=== PATIENT | female | born 1965 | race Caucasian/White ===

== ENCOUNTER 2018-08-28 06:32 | Day surgery (SDC) | payer MEDICARE, MEDICAID ==
[2018-08-28] MEDS ORDERED: Sodium Chloride 0.9% 1,000 ML IV SCH (07:00)
[2018-08-28] MEDS ORDERED: Propofol 200 MG/20 ML SDV ONE (07:23)
[2018-08-28] MEDS ORDERED: Midazolam 1 MG/ML 2 ML SDV ONE (07:23)
[2018-08-28] MEDS ORDERED: fentaNYL 100 MCG/2 ML SDV ONE (07:23)
--- NOTE | 2018-08-28 14:07 | OR ---
DATE OF PROCEDURE: 08/28/2018 SURGEON: Robbie Sepulveda MD PROCEDURE: Colonoscopy. FINDINGS: Descending colon polyp, approximately 5 mm, completely removed using cold biopsy forceps. COMPLICATIONS: None. 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 ANESTHESIA: MAC. RISKS: Risks, benefits, alternatives, and limitations including, but not limited to infection, bleeding, and perforation were explained to the patient, who wished to proceed. PROCEDURE IN DETAIL: The patient was placed in left lateral decubitus position. Digital rectal exam was performed without abnormality. The scope was introduced and advanced atraumatically to the ileocecal valve. The scope was passed through the ascending, transverse and descending colon, and retroflexed. The aforementioned polyp was identified and completely removed. No old or new blood. No masses. No diverticulosis. The patient tolerated the procedure well. Robbie Sepulveda MD /[id number]
== END 2018-08-28 09:00 | disposition home or self-care (01) ==
LOC: JP.SDS 06:32
PROVIDERS: ATTEND Surgery
DX: Z12.11 Encounter for screening for malignant neoplasm of colon (principal); K63.5 Polyp of colon; F17.200 Nicotine dependence, unspecified, uncomplicated; Z88.0 Allergy status to penicillin
CPT/HCPCS: 45380; J2250; J2704; J3010; J7030; 88305

== ENCOUNTER 2019-07-05 12:57 | Emergency (ER) | payer MEDICARE, MEDICAID ==
--- NOTE | 2019-07-05 13:22 | EDM.PDOC ---
ED HPI GENERAL MEDICAL PROBLEM - General Chief Complaint: Upper Extremity Injury/Pain Stated Complaint: FELL HURT LEFT HAND Time Seen by Provider: 07/05/19 13:22 Source of Information: Reports: Patient History Limitations: Reports: No Limitations - History of Present Illness INITIAL COMMENTS - FREE TEXT/NARRATIVE: pt slipped on the ice and landed on her hand. She has pain in the left wrist area. Onset: Today, Sudden Duration: Hour(s): Location: Reports: Upper Extremity, Left Associated Symptoms: Reports: No Other Symptoms left wrist Pain Score (Numeric/FACES): 10 - Related Data Allergies Allergy/AdvReac Type Severity Reaction Status Date / Time Penicillins Allergy Rash Verified 07/05/19 13:11 Home Meds: Home Meds Efavirenz/Emtricitabine/Tenofo [Atripla] 1 tab PO DAILY 10/31/13 [History] Sertraline [Zoloft] 100 mg PO DAILY 10/31/13 [History] Ergocalciferol (Vitamin D2) [Vitamin D2] 400 unit PO DAILY 05/20/18 [History] buPROPion HCl [Wellbutrin Xl] 300 mg PO DAILY 05/20/18 [History] Past Medical History HEENT History: Reports: Impaired Vision Gastrointestinal History: Reports: None Genitourinary History: Reports: None 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: Musculoskeletal History: Reports: Fracture Psychiatric History: Reports: Anxiety, Depression, Suicide Attempt Immunologic History: Reports: HIV - Infectious Disease History Infectious Disease History: Reports: Chicken Pox, HIV-Human Immunodeficiency Virus, Measles - Past Surgical History HEENT Surgical History: Reports: Oral Surgery GI Surgical History: Reports: Appendectomy Female Surgical History: Reports: Section, LEEP Musculoskeletal Surgical History: Reports: Other (See Below) Other Musculoskeletal Surgeries/Procedures:: surgery to repair right femur fracture Social & Family History - Family History Family Medical History: Noncontributory - Tobacco Use Smoking Status *Q: Current Every Day Smoker Years of Tobacco use: 30 Packs/Tins Daily: 1 - Caffeine Use Caffeine Use: Reports: Coffee - Recreational Drug Use Recreational Drug Use: No Review of Systems - Review of Systems Review Of Systems: See Below Constitutional: Reports: No Symptoms Eyes: Reports: No Symptoms Ears: Reports: No Symptoms Nose: Reports: No Symptoms Mouth/Throat: Reports: No Symptoms Respiratory: Reports: No Symptoms Cardiovascular: Reports: No Symptoms GI/Abdominal: Reports: No Symptoms Genitourinary: Reports: No Symptoms Musculoskeletal: Reports: Other (pain in the left wrist area. ) ED EXAM, GENERAL - Physical Exam Exam: See Below Free Text/Narrative:: pt fell on the ice and has a painful left wrist. Exam Limited By: No Limitations General Appearance: Alert, Anxious, Moderate Distress Extremities: Other (left wrist is uncomfortable and has mild swelling. ) Neurological: Alert, Oriented, Normal Cognition Course - Vital Signs Last Recorded V/S: Last Vital Signs Temp 36.6 C 07/05/19 13:12 Pulse 59 L 07/05/19 13:12 Resp 12 07/05/19 13:12 BP 101/79 07/05/19 13:12 Pulse Ox 96 07/05/19 13:12 - Orders/Labs/Meds Orders: Active Orders 24 hr Category Date Time Status Wrist Comp Min 3V Lt [CR] Stat Exams 07/05/19 13:21 Taken Acetaminophen/HYDROcodone [[place] 325-5 MG] Med 07/05/19 15:11 Once 1 tab PO ONETIME ONE - Re-Assessments/Exams Free Text/Narrative Re-Assessment/Exam: 07/05/19 15:14 xray reveals a fracture of the ulna styloid, she also has a minimally displaced fracture of the distal radius. Departure - Departure Time of Disposition: 15:08 Disposition: Home, Self-Care 01 Condition: Fair Clinical Impression: Fracture of ulnar styloid, Fracture of distal end of radius - Discharge Information Referrals: PCP,None [Primary Care Provider] - Forms: ED Department Discharge Care Plan Goals: plaster splint applied, sling, referal to Dr Luna, cool pack to the wrist area. elevate the arm.norco 5/325 q6h prn for pain. Sepsis Event Note - Evaluation Sepsis Screening Result: No Definite Risk - Focused Exam Vital Signs: Vital Signs Temp Pulse Resp BP Pulse Ox 07/05/19 13:12 36.6 C 59 L 12 101/79 96 Date Exam was Performed: 07/05/19 Time Exam was Performed: 15:12 - My Orders Last 24 Hours: My Active Orders 07/05/19 13:21 Wrist Comp Min 3V Lt [CR] Stat 07/05/19 15:11 Acetaminophen/HYDROcodone [[place] 325-5 MG] 1 tab PO ONETIME ONE - Assessment/Plan Last 24 Hours: My Active Orders 07/05/19 13:21 Wrist Comp Min 3V Lt [CR] Stat 07/05/19 15:11 Acetaminophen/HYDROcodone [[place] 325-5 MG] 1 tab PO ONETIME ONE
[2019-07-05] MEDS ORDERED: Acetaminophen/HYDROcodone 325-5 MG Tab PO ONE (15:11)
--- NOTE | 2019-07-06 11:59 | CR ---
Wrist Comp Min 3V Lt CLINICAL HISTORY: Fall FINDINGS: There is a comminuted impacted fracture of the distal radius and a fracture through the base of the ulnar styloid. There is slight displacement of both did there is some osteoarthritis. There is slight dorsal angulation of the distal radius Impression: Comminuted slightly impacted fracture distal radius and fracture through the base of the ulnar styloid
== END 2019-07-05 15:26 | disposition home or self-care (01) ==
LOC: JP.ED 12:57
DX: S52.612A Displaced fracture of left ulna styloid process, initial encounter for closed fracture (principal); S52.502A Unspecified fracture of the lower end of left radius, initial encounter for closed fracture; F17.210 Nicotine dependence, cigarettes, uncomplicated; Z88.0 Allergy status to penicillin; W01.0XXA Fall on same level from slipping, tripping and stumbling without subsequent striking against object, initial encounter
CPT/HCPCS: 29125; 73110; 99283; A9270

== ENCOUNTER 2019-07-08 07:00 | Day surgery (SDC) | payer MEDICARE, MEDICAID ==
[2019-07-08] MEDS ORDERED: Bupivacaine 0.5% 30 ML SDV ONE (07:28)
[2019-07-08] MEDS ORDERED: Nozin Nasal Sanitizer NASBOTH ONE (07:30)
[2019-07-08] MEDS ORDERED: ceFAZolin 2 GM in Premix Bag 1 BAG IV ONE (07:30)
[2019-07-08] MEDS ORDERED: Lactated Ringers 1,000 ML IV SCH (07:30)
[2019-07-08] MEDS ORDERED: Neostigmine Methylsulfate 1 MG/ML 5 ML Syringe ONE (07:32)
[2019-07-08] MEDS ORDERED: Propofol 200 MG/20 ML SDV ONE (07:32)
[2019-07-08] MEDS ORDERED: Ondansetron 4 MG/2 ML SDV ONE (07:32)
[2019-07-08] MEDS ORDERED: Rocuronium 50 MG/5 ML Vial ONE (07:32)
[2019-07-08] MEDS ORDERED: Dexamethasone 4 MG/ML SDV ONE (07:32)
[2019-07-08] MEDS ORDERED: Glycopyrrolate 0.2 MG/ML 5 ML MDV ONE (07:32)
[2019-07-08] MEDS ORDERED: Succinylcholine 200 MG/10 ML MDV ONE (07:32)
[2019-07-08] MEDS ORDERED: fentaNYL 250 MCG/5 ML SDV ONE ×2 (07:33→09:00)
[2019-07-08] MEDS ORDERED: Ketorolac 60 MG/2 ML SDV ONE (09:28)
[2019-07-08] MEDS ORDERED: Acetaminophen/oxyCODONE 325-5 MG Tab PO PRN (10:45)
--- NOTE | 2019-07-16 08:37 | OR ---
DATE OF PROCEDURE: 07/08/2019 SURGEON: Nicholas Luna MD PREOPERATIVE DIAGNOSIS: Angulated left distal radius fracture. POSTOPERATIVE DIAGNOSIS: Angulated left distal radius fracture, extra-articular. PROCEDURE: Open reduction and internal fixation, left distal radius. ANESTHESIA: General. INDICATIONS: Natalia is a very pleasant 53-year-old female, who sustained a fall onto her outstretched left hand, resulting in a fracture of the distal radius, as well as the ulnar styloid. The fracture shows dorsal angulation. I discussed the risks, benefits, potential complications, and pros and cons of closed treatment versus open reduction and internal fixation. She now presents for fixation with a volar plate. She is in agreement with the plan. The risks and benefits were discussed. PROCEDURE IN DETAIL: After adequate anesthesia was obtained, the patient was placed supine with a tourniquet about the left upper arm. The arm was prepped and draped in sterile fashion and the tourniquet inflated to 250 mmHg pressure. A longitudinal incision was made over the volar aspect of the wrist just radial to the palmaris. This was carried down through the subcutaneous tissues, and the flexor retinaculum was then divided. Blunt dissection was then carried down to the quadratus. The median nerve was protected throughout the case. A self-retaining retractor was placed. The quadratus was divided and elevated, revealing the fracture. The fracture was then reduced under direct visualization and reduction confirmed using C-arm fluoroscopy. A volar plate was then positioned and then held temporarily with K-wires and the position confirmed again with fluoroscopy. The plate was then secured using 3.5 mm cancellous screws proximally and locking screws distally. Final position of screws was evaluated and confirmed with fluoroscopy. The wound was then irrigated. Skin was closed with 2-0 Vicryl and a running 3-0 Monocryl. Steri-Strips were applied. Skin edges were infiltrated with 0.25% Marcaine, and a deeper infiltration around the plate and fracture was also done. A dressing was then applied with a volar splint. The patient tolerated the procedure very well, there were no complications, and was taken from the operating room in stable condition. Nicholas Luna MD /[id number]
== END 2019-07-08 11:20 | disposition home or self-care (01) ==
LOC: JP.SDS 07:00
PROVIDERS: ATTEND Specialist
DX: S52.552A Other extraarticular fracture of lower end of left radius, initial encounter for closed fracture (principal); S52.612A Displaced fracture of left ulna styloid process, initial encounter for closed fracture; W19.XXXA Unspecified fall, initial encounter; Z88.0 Allergy status to penicillin
CPT/HCPCS: 25607; 76000; A9270; C1713; J0330; J0690; J1100; J1885; J2405; J2704; J2710; J3010; J3490; J7120

== ENCOUNTER 2019-12-07 07:30 | Day surgery (SDC) | payer MEDICARE, MEDICAID ==
[2019-12-07] MEDS ORDERED: Lactated Ringers 1,000 ML IV SCH (08:00)
[2019-12-07] MEDS ORDERED: Nozin Nasal Sanitizer NASBOTH ONE (08:00)
[2019-12-07] MEDS ORDERED: Bupivacaine 0.5% 30 ML SDV ONE (08:09)
[2019-12-07] MEDS ORDERED: ceFAZolin 2 GM in Premix Bag 1 BAG IV ONE (08:45)
[2019-12-07] MEDS ORDERED: Propofol 200 MG/20 ML SDV ONE (09:14)
[2019-12-07] MEDS ORDERED: Rocuronium 50 MG/5 ML Vial ONE (09:14)
[2019-12-07] MEDS ORDERED: Dexamethasone 4 MG/ML SDV ONE (09:14)
[2019-12-07] MEDS ORDERED: Glycopyrrolate 0.2 MG/ML 5 ML MDV ONE (09:14)
[2019-12-07] MEDS ORDERED: Neostigmine Methylsulfate 1 MG/ML 5 ML Syringe ONE (09:14)
[2019-12-07] MEDS ORDERED: Ondansetron 4 MG/2 ML SDV ONE (09:14)
[2019-12-07] MEDS ORDERED: fentaNYL 250 MCG/5 ML SDV ONE (09:15)
--- NOTE | 2019-12-11 17:37 | OR ---
DATE OF PROCEDURE: 12/07/2019 SURGEON: Nicholas Luna MD PREOPERATIVE DIAGNOSIS: Calcific tendinitis, left Achilles, with a bone spur, calcaneus. POSTOPERATIVE DIAGNOSIS: Heterotopic bone, left Achilles, with a bone spur, calcaneus. PROCEDURE: Excision of heterotopic bone, left Achilles, and debridement of bone spur and repair of the Achilles tendon. ANESTHESIA: General. INDICATIONS: Natalia is a 54-year-old female who has been having increasing pain in her left heel for the past year. Difficulty with shoe wear. She has failed conservative treatment with modification of shoe wear. X-ray reveals a large fragment of heterotopic bone consistent with calcific tendinitis within the Achilles tendon just above its insertion. She also has a large traction spur on the posterior calcaneus at the Achilles insertion. Now presents for debridement of both. Risks, benefits, and potential complications were discussed. DESCRIPTION OF PROCEDURE: After adequate anesthesia was obtained, the patient was placed in a prone position, and all bony prominences were well padded. A tourniquet was placed about the upper thigh. Leg was prepped and draped in a sterile fashion. Leg was exsanguinated and tourniquet inflated to 300 mmHg pressure. Incision was made over the insertion of the Achilles and distal Achilles in a curvilinear fashion. Full-thickness skin flaps were elevated. A longitudinal incision was made in the midsubstance of the Achilles in line with the fibers and carried down to the heterotopic bone within the tendon. This was actually a solid piece of heterotopic bone and not consistent with the chalky calcific tendinitis. This was sharply excised with a 15 blade. A portion of the insertion of the Achilles was then peeled off the calcaneus and a rongeur was used to debride the osteophyte. Edges of this were smoothed over. This provided very good debulking of the posterior heel. Two Mitek Super anchors were then placed into the calcaneus. Sutures from these were brought through the tendon and used to secure the tendon back onto the calcaneus and repair the tendon in a [id number] fashion. The ends of the sutures were then brought back through the tendon and tied off to the side and in the soft tissue to avoid the large knot being palpable under the skin posteriorly. A solid repair of the tendon was achieved. Wound was irrigated. The skin was then closed with 2-0 Vicryl and a running 3-0 Monocryl and Steri- Strips were applied. It was infiltrated with Marcaine and a sterile dressing applied. The patient will be placed into a CAM walker boot postoperatively. Nicholas Luna MD /[id number]
== END 2019-12-07 13:05 | disposition home or self-care (01) ==
LOC: JP.SDS 07:30
PROVIDERS: ATTEND Specialist
DX: M65.272 Calcific tendinitis, left ankle and foot (principal); F17.200 Nicotine dependence, unspecified, uncomplicated; F41.9 Anxiety disorder, unspecified; Z88.0 Allergy status to penicillin
CPT/HCPCS: 36415; 80053; 85027; A9270-GY; C1713; J0690; J1100; J2405; J2704; J2710; J3010; J3490; J7120

== ENCOUNTER 2020-03-04 07:34 | Emergency (ER) | payer MEDICARE, MEDICAID ==
--- NOTE | 2020-03-04 08:01 | EDM.PDOC ---
ED HPI GENERAL MEDICAL PROBLEM - General Chief Complaint: Upper Extremity Injury/Pain Stated Complaint: FELL ON RIGHT WRIST Time Seen by Provider: 03/04/20 08:00 Source of Information: Reports: Patient History Limitations: Reports: No Limitations - History of Present Illness INITIAL COMMENTS - FREE TEXT/NARRATIVE: pt fell on the ice after she slipped. She has a abrasion on the dorsal aspect of the wrist. The wrist is swollen. Onset: Today, Sudden Duration: Hour(s): Location: Reports: Upper Extremity, Right Associated Symptoms: Reports: No Other Symptoms - Related Data Allergies Allergy/AdvReac Type Severity Reaction Status Date / Time Penicillins Allergy Hives Verified 03/04/20 07:45 Home Meds: Home Meds Efavirenz/Emtricitabine/Tenofo [Atripla] 1 tab PO DAILY 10/31/13 [History] Sertraline [Zoloft] 100 mg PO DAILY 10/31/13 [History] buPROPion HCL [Wellbutrin Xl] 300 mg PO DAILY 05/20/18 [History] Ergocalciferol (Vitamin D2) [Vitamin D2] 400 unit PO DAILY 07/07/19 [History] Past Medical History HEENT History: Reports: Impaired Vision Gastrointestinal History: Reports: None Genitourinary History: Reports: None 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: Musculoskeletal History: Reports: Fracture Other Musculoskeletal History: Rt foot Fx 09/22/19 Psychiatric History: Reports: Anxiety, Depression, Suicide Attempt Immunologic History: Reports: HIV - Infectious Disease History Infectious Disease History: Reports: Chicken Pox, HIV-Human Immunodeficiency Virus, Measles, Mumps - Past Surgical History Head Surgeries/Procedures: Reports: None HEENT Surgical History: Reports: Oral Surgery GI Surgical History: Reports: Appendectomy, Colonoscopy Female Surgical History: Reports: Section, LEEP Musculoskeletal Surgical History: Reports: Other (See Below) Other Musculoskeletal Surgeries/Procedures:: surgery to repair right femur fracture in 1980. orif lt wrist 07/08/19. left achilles repair 12/07/19 Dermatological Surgical History: Reports: None Social & Family History - Family History Family Medical History: Noncontributory - Tobacco Use Tobacco Use Status *Q: Current Every Day Tobacco User Years of Tobacco use: 30 Packs/Tins Daily: 0.5 Used Tobacco, but Quit: No Second Hand Smoke Exposure: No - Caffeine Use Caffeine Use: Reports: None - Recreational Drug Use Recreational Drug Use: No Review of Systems - Review of Systems Review Of Systems: See Below Constitutional: Reports: No Symptoms Eyes: Reports: No Symptoms Ears: Reports: No Symptoms Nose: Reports: No Symptoms Mouth/Throat: Reports: No Symptoms Respiratory: Reports: No Symptoms Cardiovascular: Reports: No Symptoms GI/Abdominal: Reports: No Symptoms Genitourinary: Reports: No Symptoms Musculoskeletal: Reports: Other (pain in rt wrist. Pt fell this am. ) ED EXAM, GENERAL - Physical Exam Exam: See Below Free Text/Narrative:: pt fell on the ice this am and she now has a painful rt wrist. There is swelling and deformity. Exam Limited By: No Limitations General Appearance: Alert, Anxious Extremities: Other (pt has a painful swollen rt wrist. Thwre is slight deformity. ) Course - Vital Signs Last Recorded V/S: Last Vital Signs Temp 35.7 C L 03/04/20 07:48 Pulse 74 03/04/20 07:48 Resp 16 03/04/20 07:48 BP 93/59 L 03/04/20 07:48 Pulse Ox 94 L 03/04/20 07:48 - Orders/Labs/Meds Orders: Active Orders 24 hr Category Date Time Status Consult to Orthopedic Clinic [CONS] Routine Cons 03/07/20 08:40 Active Wrist Comp Min 3V Rt [CR] Stat Exams 03/04/20 07:58 Taken Meds: Medications Discontinued Medications Generic Name Dose Route Start Last Admin Trade Name Freq PRN Reason Stop Dose Admin Hydrocodone Bitart/Acetaminophen 1 tab 03/04/20 08:39 [place] 325-5 Mg PO 03/04/20 08:40 ONETIME ONE - Re-Assessments/Exams Free Text/Narrative Re-Assessment/Exam: 03/04/20 08:51 xray reveals a communited fracture of the rt distal radius, very little loss of alignment, A plaster splint was applied. She will see Dr Gong on Saturday for possible casting and further care. Departure - Departure Time of Disposition: 08:35 Disposition: Home, Self-Care 01 Condition: Fair Clinical Impression: Fracture, radius, distal Qualifiers: Encounter type: subsequent encounter Fracture type: closed Fracture healing: with routine healing - Discharge Information Referrals: Madhuri Parra PA-C [Primary Care Provider] - Forms: ED Department Discharge, ED Return to Work/School Form Care Plan Goals: fracture of the distal radius-- splint applied by estiven. elevate the hand and wrist, cool pack, appt with Dr Gong Saturday or saturday of next week, tylenol and motrin for mild pain, norco 5/325 q6h prn for severe pain. # 10 Sepsis Event Note (ED) - Evaluation Sepsis Screening Result: No Definite Risk - Focused Exam Vital Signs: Vital Signs Temp Pulse Resp BP Pulse Ox 03/04/20 07:48 35.7 C L 74 16 93/59 L 94 L 03/04/20 07:47 35.7 C L 74 16 93/59 L 94 L - My Orders Last 24 Hours: My Active Orders 03/04/20 07:58 Wrist Comp Min 3V Rt [CR] Stat 03/07/20 08:40 Consult to Orthopedic Clinic [CONS] Routine - Assessment/Plan Last 24 Hours: My Active Orders 03/04/20 07:58 Wrist Comp Min 3V Rt [CR] Stat 03/07/20 08:40 Consult to Orthopedic Clinic [CONS] Routine
[2020-03-04] MEDS ORDERED: Acetaminophen/HYDROcodone 325-5 MG Tab PO ONE (08:39)
--- NOTE | 2020-03-04 09:19 | CR ---
Wrist Comp Min 3V Rt CLINICAL HISTORY: Pain, fall FINDINGS: There is a comminuted slightly impacted fracture of the distal radius. Fracture line extends into the articular margin. All appears intact. IMPRESSION: Comminuted slightly impacted fracture distal radius
== END 2020-03-04 09:01 | disposition home or self-care (01) ==
LOC: JP.ED 07:34
DX: S52.501A Unspecified fracture of the lower end of right radius, initial encounter for closed fracture (principal); S60.811A Abrasion of right wrist, initial encounter; F32.9 Major depressive disorder, single episode, unspecified; F41.9 Anxiety disorder, unspecified; B20 Human immunodeficiency virus [HIV] disease; Z90.49 Acquired absence of other specified parts of digestive tract; F17.210 Nicotine dependence, cigarettes, uncomplicated; Z88.0 Allergy status to penicillin; Z79.899 Other long term (current) drug therapy; W00.0XXA Fall on same level due to ice and snow, initial encounter
CPT/HCPCS: 29125; 73110; 99283; A9270